=== PATIENT | female | born 1965 | race African-American/Black ===

== ENCOUNTER 2022-08-25 08:25 | Emergency (ER) | payer OTHER ==
[~2022-08-25] VITALS: Ht 160 cm; Wt 90.7 kg
[2022-08-25] MEDS ORDERED: METHYLPREDNISOLONE SOD SUCC 125 MG/2ML VIAL IV STA (08:41)
[2022-08-25] MEDS ORDERED: ALBUTEROL/IPRATROPIUM 3 ML NEB NEB ONE (08:45)
[2022-08-25 08:49] LABS: BASOPHILS % 0.2 % (0.0-1.0); EOSINOPHILS % 0.3 % (0.0-6.0); HEMATOCRIT 40.1 % (34.2-44.1); HEMOGLOBIN 12.5 g/dL (12.0-16.0); LYMPHOCYTES # (AUTO) 1.7 (1.0-3.2); LYMPHOCYTES % 14.8 % (18.0-39.1); MEAN CORPUSCULAR HEMOGLOBIN 29.1 pg (28-32); MEAN CORPUSCULAR HGB CONC 31.2 g/dL (31-35); MEAN CORPUSCULAR VOLUME 93.5 fL (81-99); MONOCYTES # (AUTO) 0.6 (0.2-0.8); MONOCYTES % 5.3 % (4.4-11.3); NEUTROPHILS # (AUTO) 9.1 (2.1-6.9); NEUTROPHILS % 79.1 % (38.7-80.0); PLATELET COUNT 267 x10e3/uL (140-360); RED BLOOD COUNT 4.29 x10e6/uL (3.6-5.1); RED CELL DISTRIBUTION WIDTH 13.9 % (11.7-14.4)
[2022-08-25 09:02] LABS: ALBUMIN/GLOBULIN RATIO 1.1 (0.8-2.0); ANION GAP 15.1 mmol/L (8-16); CALCIUM 9.8 mg/dL (8.4-10.2); CREATININE, SERUM 0.85 mg/dL (0.57-1.11); POTASSIUM 4.1 mmol/L (3.5-5.1)
[2022-08-25 09:15] VITALS: PULSE 96; RESP 18; O2SAT 96
[2022-08-25 09:16] VITALS: PULSE 96; RESP 18
[2022-08-25 09:23] LABS: CREATINE KINASE MB 2.1 ng/mL (0-5.0)
[2022-08-25] MEDS ORDERED: FUROSEMIDE INJ 10 MG/ML 2 ML VIAL IV ONE (09:45)
[2022-08-25 10:07] VITALS: O2SAT 96
[2022-08-25] MEDS ORDERED: VENTOLIN HFA18 GM INH (10:08)
[2022-08-25] MEDS ORDERED: AZITHROMYCIN250 MG PO (10:08)
[2022-08-25] MEDS ORDERED: LISINOPRIL-HCT1 EAC1 PO (10:08)
[2022-08-25] MEDS ORDERED: MEDROL4 M2 PO (10:08)
== END 2022-08-25 10:25 | disposition home or self-care (01) ==
LOC: ER 08:41
DX: R05.9 Cough, unspecified (principal); J40 Bronchitis, not specified as acute or chronic; I50.9 Heart failure, unspecified; I10 Essential (primary) hypertension; R94.31 Abnormal electrocardiogram [ECG] [EKG]; Z20.822 Contact with and (suspected) exposure to COVID-19; F17.210 Nicotine dependence, cigarettes, uncomplicated
CPT/HCPCS: 36415; 71045; 80053; 82550; 82553; 83880; 84484; 85025; 93005; 94640; 94799; 99284; J1940; J2930; U0002